=== PATIENT | female | born 1950 | race Two or more races ===

== ENCOUNTER 2022-04-04 12:44 | Outpatient (CLI) | payer OTHER | END 2022-04-04 12:51 | disposition home or self-care (01) | LOC: RAD 12:44 | PROVIDERS: ATTEND Orthopaedic Surgery | DX: M25.571 Pain in right ankle and joints of right foot (principal); M66.361 Spontaneous rupture of flexor tendons, right lower leg ==

== ENCOUNTER 2022-05-07 10:03 | Outpatient (CLI) | payer OTHER | END 2022-05-07 10:13 | disposition home or self-care (01) | LOC: TOM 10:03 | PROVIDERS: ATTEND Orthopaedic Surgery | DX: M25.571 Pain in right ankle and joints of right foot (principal); M66.361 Spontaneous rupture of flexor tendons, right lower leg ==

== ENCOUNTER 2022-06-13 10:16 | Outpatient (CLI) | payer OTHER | END 2022-06-13 10:21 | disposition home or self-care (01) | LOC: RAD 10:16 | PROVIDERS: ATTEND Orthopaedic Surgery | DX: M25.571 Pain in right ankle and joints of right foot (principal); M25.572 Pain in left ankle and joints of left foot ==